=== PATIENT | female | born 1960 | race American Indian/Alaskan Native ===

== ENCOUNTER 2017-08-11 13:09 | Emergency (ER) | payer MEDICARE ==
--- NOTE | 2017-08-11 14:00 | XRay Report ---
CHEST TWO VIEWS: 08/11/17 CLINICAL: Difficulty breathing. Asthma. COMPARISON: None FINDINGS: Normal heart and pulmonary vasculature. The lungs are normally expanded and clear. The bones and soft tissues are normal. IMPRESSION: Normal chest.
--- NOTE | 2017-08-11 17:10 | Emergency Department Report ---
Chief Complaint: Upper Respiratory Infection Stated Complaint: NESHA/ASTHMA Time Seen by Provider: 08/11/17 17:10 - HPI History of Present Illness: pt is a 57 yo female here for cough x 10 days with new right sided persistent headaches. Pt denied any sinus drainage.. Pt is a smoker; Pt states she had gone to Urgent care for her flu-like symptoms 10 days ago but was not tested for the flu. Pt states she had also gone to [place] but had no new orders. Pt states that she has been wheezing. - ROS Review of Systems: ROS: other systems reviewed and neg except as noted per HPI - Exam Vital Signs: Vital Signs 08/11/17 13:23 Temperature 97.9 F Pulse Rate 71 Respiratory 20 Rate Blood Pressure 103/68 O2 Sat by Pulse 98 Oximetry Physical Exam: I PE: General: awake, alert, in no acute distress; vital signs noted Heent: eomi, perrla; mmm; pharynx clear Neck: supple Lungs: wheezing bilaterally Heart: RRR no m/g/r Abd: soft, +Bs Ext: no edema; dp pulses 2+ neuro: awake, alert appropriate; moves all ext symmetrically; MSE screening note: Focused history and physical exam performed. Due to findings the following was ordered: ED Disposition for MSE Condition: Stable
[2017-08-11] MEDS ORDERED: PROVENTIL IH ONE (17:51)
[2017-08-11] MEDS ORDERED: DELTASONE PO ONE (17:53)
--- NOTE | 2017-08-11 18:19 | Cat Scan Report ---
FINAL REPORT PROCEDURE: CT HEAD/BRAIN WO CON TECHNIQUE: Computerized tomography of the head was performed without contrast material. HISTORY: persistent headaches COMPARISON: No prior studies are available for comparison. FINDINGS: Skull and scalp: Normal. Paranasal sinuses: Normal. Ventricles and subarachnoid spaces: Normal. Cerebrum: No evidence of hemorrhage, acute infarction or mass . Cerebellum and brainstem: No evidence of hemorrhage, acute infarction or mass. Vasculature: Normal. Comments: None. IMPRESSION: Normal Examination
--- NOTE | 2017-08-11 18:56 | Emergency Department Report ---
Minor Respiratory - HPI Chief Complaint: Upper Respiratory Infection Stated Complaint: NESHA/ASTHMA Time Seen by Provider: 08/11/17 17:10 Duration: 10 days Severity: moderate Minor Respiratory: Yes Rhinorrhea, Yes Able to Tolerate Fluids, Yes Cough, Yes Shortness of Breath, No Sore Throat, No Ear Pain, No Sick Contacts, No Hemoptysis, No Chest Pain, No Fever Other History: This is a 57 y.o. female presents with cough and right sided headache for 10 days. History of asthma and current smoker. Smokes 3 cigarettes a day. She was diagnosed with the flu 1 week ago at Urgent Care. She was not given prescriptions but encouraged to treat symptoms. She is taking excedrin with improvement of headache. Her head is currently not in pain. Last week she went back to urgent care and treated with prednisone, albuterol and proventil 5 days ago for asthma exacerbation. She could only pickling grader proventil and prednisone. Reports having to use inhalers more than usual without improvement of symptoms. Denies fever, chest pain, wheezing, tachypnea, and sleep disturbance. ED Review of Systems ROS: Stated complaint: NESHA/ASTHMA Other details as noted in HPI Constitutional: denies: chills, diaphoresis, fever, malaise, weakness Respiratory: cough, shortness of breath, SOB with exertion. denies: stridor, wheezing Cardiovascular: denies: chest pain, palpitations Gastrointestinal: denies: abdominal pain, nausea, diarrhea Neurological: headache. denies: weakness, paresthesias ED Past Medical Hx - Past Medical History Previous Medical History?: Yes Hx Asthma: Yes - Surgical History Past Surgical History?: No - Social History Smoking Status: Current Every Day Smoker Substance Use Type: None - Medications Home Medications: Home Medications Medication Instructions Recorded Confirmed Last Taken Type ALBUTEROL NEB's [Proventil 0.083% 2.5 mg IH TID PRN #100 neb 08/11/17 Unknown Rx NEBS] Fluticasone/Salmeterol [Advair 1 each IH Q12H #1 blst.w.dev 08/11/17 Unknown Rx 100-50 Diskus] Nebulizer Accessories [Sootheneb 1 each MC DAILY #1 each 08/11/17 Unknown Rx [id number] Adult Mask] Nebulizer [Compact Ultrasonic 1 each MC Q4-6H #1 each 08/11/17 Unknown Rx Nebulizer] Prednisone [predniSONE 5 mg (6-Day 5 mg PO .TAPER #1 tab.dsEwapk 08/11/17 Unknown Rx Pack, 21 Tabs)] Minor Respiratory Exam - Exam General: Vital signs noted. No distress. Alert and acting appropriately. HEENT: Yes Pharyngeal Erythema, Yes Moist Mucous Membranes, Yes Rhinorrhea, No Pharyngeal Exudates, No Conjuctival Injection, No Frontal Tenderness, No Maxillary Tenderness Ear: Neither TM Bulge, Neither TM Erythema, Neither EAC Pain, Neither EAC Discharge Neck: Yes Supple, No Adenopathy Lungs: Yes Good Air Exchange, Yes Cough, No Wheezes, No Ronchi, No Stridor, No Labored Respirations, No Retractions, No Use of Accessory Muscles, No Other Abnormal Lung Sounds Heart: Yes Regular, No Murmur Abdomen: Yes Normal Bowel Sounds, No Tenderness, No Peritoneal Signs Skin: No Rash, No Edema Neurologic: Alert and oriented, no deficits. Musculoskeletal: Unremarkable. ED Course Vital Signs 08/11/17 08/11/17 13:23 18:20 Temperature 97.9 F Pulse Rate 71 Pulse Rate [ 79 Posterior Bilateral Throughout] Respiratory 20 Rate Respiratory 18 Rate [Posterior Bilateral Throughout] Blood Pressure 103/68 O2 Sat by Pulse 98 Oximetry ED Medical Decision Making - Radiology Data Radiology results: image reviewed CT of head and CXR Impression: normal exam - Medical Decision Making This is a 57 y.o. female presents with cough and right sided headache for 1 week. Current smoker, 3 cigarettes a day. Currently taking proventil and steroids from urgent care with minimal improvement. Patient is stable and was examined by me. Vitals stable. Chest xray and CT of head has been obtained and dictated by radiologist and normal. Patient informed of normal exam. Given albuteral neb 7.5 IH and prednisone 60 mg po in ER once. Patient does not seem toxic or ill in appearance. No acute signs of distress noted. Plan to discharge home with advair diskus, prednisone taper, and nebulizer. Discussed plan with patient and agrees to plan of care to treat outpatient. No further questions noted. Discharged home in stable condition. Follow up with PCP in 24- 48 hours. Critical care attestation.: If time is entered above; I have spent that time in minutes in the direct care of this critically ill patient, excluding procedure time. ED Disposition Clinical Impression: Smoker's respiratory syndrome Asthma exacerbation Qualifiers: Asthma severity: moderate Asthma persistence: persistent Qualified Code(s): J45.41 - Moderate persistent asthma with (acute) exacerbation Disposition: DC- TO HOME OR SELFCARE Is pt being admited?: No Does the pt Need Aspirin: No Condition: Stable Instructions: Asthma (ED), How to Stop Smoking (ED) Additional Instructions: Start advair diskus twice daily for intermediate maintenance of asthma. Complete prednisone dose pack as prescribed. Follow up with primary care provider in 24-48 hours. Prescriptions: ALBUTEROL NEB's [Proventil 0.083% NEBS] 2.5 mg IH TID PRN #100 neb PRN Reason: Wheezing Fluticasone/Salmeterol [Advair 100-50 Diskus] 1 each IH Q12H #1 blst.w.dev Nebulizer [Compact Ultrasonic Nebulizer] 1 each MC Q4-6H #1 each Nebulizer Accessories [Sootheneb [id number] Adult Mask] 1 each MC DAILY #1 each Prednisone [predniSONE 5 mg (6-Day Pack, 21 Tabs)] 5 mg PO .TAPER #1 tab.ds.pk Referrals: [facility] [Outside] - 3-5 Days [facility] [Outside] - 3-5 Days Forms: Work/School Release Form(ED) Time of Disposition: 20:46 Print Language: BENGALI
[2017-08-11 20:36] VITALS: BP 122/64
== END 2017-08-11 21:10 | disposition home or self-care (01) ==
LOC: ED 13:09
DX: J45.901 Unspecified asthma with (acute) exacerbation (principal); F17.200 Nicotine dependence, unspecified, uncomplicated
CPT/HCPCS: 70450; 71046; 94644; 99284; J7512